=== PATIENT | male | born 1980 | race Caucasian/White ===

== ENCOUNTER 2017-11-05 21:35 | Emergency (ER) | payer BC ==
[2017-11-05] MEDS ORDERED: Sodium Chloride 0.9% 100 ML IV SCH (22:45)
[2017-11-05] MEDS ORDERED: Iopamidol 612 MG/ML 150 ML Bottle IV SCH (22:45)
[2017-11-05] MEDS ORDERED: Lactated Ringers 1,000 ML IV SCH (22:45)
--- NOTE | 2017-11-05 22:46 | EDM.PDOC ---
<Gabby Bass N - Last Filed: 11/05/17 22:52> ED HPI GENERAL MEDICAL PROBLEM - General Chief Complaint: Abdominal Pain Stated Complaint: ABDOMINAL PAIN Time Seen by Provider: 11/05/17 21:44 - History of Present Illness INITIAL COMMENTS - FREE TEXT/NARRATIVE: Lucien is an otherwise healthy 37-year-old male who presents with complaints of epigastric pain. States he had noticeable fatigue yesterday, and experienced abdominal pain in the evening. The pain has persisted through the night, and woke him up at various times due to its intensity. The patient states the pain is spasmodic, and lasts for about 2 minutes at a time, recurring approximately every 15 minutes. He reports that it feels as though someone is "grabbing" him internally, and rates the pain at an 8/10. No known exacerbating or relieving factors. He has tried Tums and Motrin without relief. The patient reports associated fatigue and decreased appetite, but denies diarrhea, fevers, chills, constipation, or nausea. States he had a Hydascan approximately 2-3 months ago with no significant findings. Abdominal Pain Score (Numeric/FACES): 8 - Related Data Allergies Allergy/AdvReac Type Severity Reaction Status Date / Time amoxicillin Allergy Other Verified 11/05/17 22:04 clavulanic acid Allergy Rash Verified 11/05/17 22:04 [From Augmentin] Home Meds: Home Meds Levothyroxine 1 tab PO DAILY 11/05/17 [History] Loratadine/Pseudoephedrine [Claritin-D 24 Hour Tablet] 1 tab PO DAILY 11/05/17 [ History] Past Medical History HEENT History: Reports: Impaired Vision - Infectious Disease History Infectious Disease History: Reports: Chicken Pox - Past Surgical History Endocrine Surgical History: Reports: Thyroidectomy Social & Family History - Tobacco Use Smoking Status *Q: Never Smoker - Caffeine Use Caffeine Use: Reports: Coffee, Soda - Recreational Drug Use Recreational Drug Use: No ED ROS GENERAL - Review of Systems Review Of Systems: See Below Constitutional: Reports: Fatigue, Decreased Appetite. Denies: Fever, Chills, Malaise, Weakness HEENT: Reports: No Symptoms Respiratory: Denies: Shortness of Breath, Pleuritic Chest Pain, Cough Cardiovascular: Denies: Chest Pain, Edema Endocrine: Reports: Fatigue GI/Abdominal: Reports: Abdominal Pain, Decreased Appetite, Flatus. Denies: Bloody Stool, Constipation, Diarrhea, Hematemesis, Hematochezia, Melena, Nausea , Vomiting : Denies: Frequency, Hematuria, Urgency Musculoskeletal: Reports: No Symptoms Skin: Denies: Rash Neurological: Reports: No Symptoms Psychiatric: Reports: No Symptoms Hematologic/Lymphatic: Reports: No Symptoms Immunologic: Reports: No Symptoms ED EXAM, GI/ABD - Physical Exam Exam Limited By: No Limitations General Appearance: Alert, No Apparent Distress Throat/Mouth: Other (Dry mucous membranes) Respiratory/Chest: No Respiratory Distress, Lungs Clear, Normal Breath Sounds, No Accessory Muscle Use Cardiovascular: Regular Rate, Rhythm, No Edema, No Gallop, No Murmur, No Rub GI/Abdominal Exam: Normal Bowel Sounds, Soft, No Mass, Tender (In the epigastric region) Neurological: Alert, Oriented, CN II-XII Intact, Normal Cognition Psychiatric: Normal Affect, Normal Mood Skin Exam: Warm, Dry, Intact, No Rash Course - Vital Signs Last Recorded V/S: Last Vital Signs Temp 97.9 F 11/05/17 22:03 Pulse 70 11/05/17 22:03 Resp 16 11/05/17 22:03 BP 118/85 11/05/17 22:03 Pulse Ox 98 11/05/17 22:03 - Orders/Labs/Meds Orders: Active Orders 24 hr Category Date Time Status Peripheral IV Care [RC] . DIRECTED Care 11/05/17 22:36 Active Abdomen Pelvis w Cont [CT] Urgent Exams 11/05/17 22:35 Taken UA W/MICROSCOPIC [URIN] Urgent Lab 11/05/17 22:35 Ordered Lactated Ringers [Ringers, Lactated] 1,000 ml Med 11/05/17 22:45 Active IV ASDIRECTED Sodium Chloride 0.9% [Normal Saline] 100 ml Med 11/05/17 22:45 Active IV ASDIRECTED Sodium Chloride 0.9% [Saline Flush] Med 11/05/17 22:35 Active 10 ml FLUSH ASDIRECTED PRN Peripheral IV Insertion Adult [OM.PC] Urgent Oth 11/05/17 22:35 Ordered Medication Orders Lactated Ringer's (Ringers, Lactated) 1,000 mls @ 500 mls/hr IV ASDIRECTED [facility] Last Admin: 11/05/17 23:18 Dose: 500 mls/hr Sodium Chloride (Normal Saline) 100 mls @ 3 mls/sec IV ASDIRECTED VICTORIA Last Admin: 11/05/17 23:37 Dose: 3.5 mls/sec Sodium Chloride (Saline Flush) 10 ml FLUSH ASDIRECTED PRN PRN Reason: Keep Vein Open Last Admin: 11/05/17 23:36 Dose: 10 ml Admin: 11/05/17 23:12 Dose: 10 ml Labs: Laboratory Tests 11/05/17 11/05/17 11/05/17 Range/Units 22:35 22:35 22:59 WBC 7.7 (4.5-11.0) K/uL RBC 5.20 (4.30-5.90) M/uL Hgb 15.5 H (12.0-15.0) g/dL Hct 43.3 (40.0-54.0) % MCV 83 (80-98) fL MCH 30 (27-31) pg MCHC 36 (32-36) % Plt Count 189 (150-400) K/uL Neut % (Auto) 62 (36-66) % Lymph % (Auto) 21 L (24-44) % [place] % (Auto) 13 H (2-6) % Eos % (Auto) 4 (2-4) % Baso % (Auto) 0 (0-1) % Sodium 137 L (140-148) mmol/L Potassium 3.5 L (3.6-5.2) mmol/L Chloride 104 (100-108) mmol/L Carbon Dioxide 26 (21-32) mmol/L Anion Gap 10.5 (5.0-14.0) mmol/L BUN 14 (7-18) mg/dL Creatinine 0.9 (0.8-1.3) mg/dL Est Cr Clr Drug Dosing 133.19 mL/min Estimated GFR (MDRD) > 60 (>60) Glucose 99 (74-106) mg/dL Calcium 8.4 L (8.5-10.1) mg/dL Total Bilirubin 0.6 (0.2-1.0) mg/dL AST 13 L (15-37) U/L ALT 25 (12-78) U/L Alkaline Phosphatase 68 (46-116) U/L Troponin I < 0.017 (0.000-0.056) ng/mL Total Protein 6.8 (6.4-8.2) g/dL Albumin 3.5 (3.4-5.0) g/dL Globulin 3.3 (2.3-3.5) g/dL Albumin/Globulin Ratio 1.1 L (1.2-2.2) Lipase 102 (73-393) U/L Urine Color Yellow Urine Appearance Clear Urine pH 7.0 (4.5-8.0) Ur Specific [place] 1.010 (1.008-1.030) Urine Protein Negative (NEGATIVE) mg/dL Urine Glucose (UA) Normal (NEGATIVE) mg/dL Urine Ketones Negative (NEGATIVE) mg/dL Urine Occult Blood Negative (NEGATIVE) Urine Nitrite Negative (NEGAITVE) Urine Bilirubin Negative (NEGATIVE) Urine Urobilinogen Normal (NORMAL) mg/dL Ur Leukocyte Esterase Negative (NEGATIVE) Urine RBC Not seen (0-5) Urine WBC Not seen (0-5) Ur Epithelial Cells Not seen Amorphous Sediment Not seen Urine Bacteria Not seen Urine Mucus Not seen Meds: Medications Generic Name Dose Route Start Last Admin Trade Name Freq PRN Reason Stop Dose Admin Lactated Ringer's 1,000 mls @ 500 mls/hr 11/05/17 22:45 11/05/17 23:18 Ringers, Lactated IV 500 mls/hr ASDIRECTED VICTORIA Administration Sodium Chloride 100 mls @ 3 mls/sec 11/05/17 22:45 11/05/17 23:37 Normal Saline IV 3.5 mls/sec ASDIRECTED VICTORIA Administration Sodium Chloride 10 ml 11/05/17 22:35 11/05/17 23:36 Saline Flush FLUSH 10 ml ASDIRECTED PRN Administration Keep Vein Open Discontinued Medications Generic Name Dose Route Start Last Admin Trade Name Freq PRN Reason Stop Dose Admin Al Hydroxide/Mg Hydroxide 15 0 ml 11/06/17 01:12 11/06/17 01:34 ml/ Lidocaine HCl 15 ml PO 11/06/17 01:13 30 ml ONETIME ONE Administration Iopamidol 150 ml 11/05/17 22:45 11/05/17 23:37 Isovue-300 (61%) IV 150 ml . DIRECTED VICTORIA Administration Departure - Departure Disposition: Home, Self-Care 01 Clinical Impression: GERD (gastroesophageal reflux disease) Qualifiers: Esophagitis presence: esophagitis presence not specified Qualified Code(s): K21.9 - Gastro-esophageal reflux disease without esophagitis - Discharge Information Referrals: PCP,None [Primary Care Provider] - Forms: ED Department Discharge Additional Instructions: Try Zantac at home, Follow-up with your primary care in the next 5-7 days for reevaluation, call return to the emergency department with worsening of symptoms - My Orders Last 24 Hours: My Active Orders 11/05/17 22:35 Abdomen Pelvis w Cont [CT] Urgent UA W/MICROSCOPIC [URIN] Urgent Sodium Chloride 0.9% [Saline Flush] 10 ml FLUSH ASDIRECTED PRN Peripheral IV Insertion Adult [OM.PC] Urgent 11/05/17 22:36 Peripheral IV Care [RC] . DIRECTED 11/05/17 22:45 Lactated Ringers [Ringers, Lactated] 1,000 ml IV ASDIRECTED Sodium Chloride 0.9% [Normal Saline] 100 ml IV ASDIRECTED - Assessment/Plan Last 24 Hours: My Active Orders 11/05/17 22:35 Abdomen Pelvis w Cont [CT] Urgent UA W/MICROSCOPIC [URIN] Urgent Sodium Chloride 0.9% [Saline Flush] 10 ml FLUSH ASDIRECTED PRN Peripheral IV Insertion Adult [OM.PC] Urgent 11/05/17 22:36 Peripheral IV Care [RC] . DIRECTED 11/05/17 22:45 Lactated Ringers [Ringers, Lactated] 1,000 ml IV ASDIRECTED Sodium Chloride 0.9% [Normal Saline] 100 ml IV ASDIRECTED <OfficerNathan - Last Filed: 11/06/17 02:16> ED EXAM, GI/ABD - Physical Exam Exam: See Below Departure - Departure Time of Disposition: 02:13 Condition: Good - Assessment/Plan Plan: Assessment Acuity = acute Site and laterality = epigastric pain Etiology = unclear etiology suspicious for gastroesophageal reflux disease Manifestations = none Location of injury = Home Lab values = CBC, CMP, urinalysis unremarkable CT scan consistent with enteritis Plan He had good relief with GI cocktail he is going to try Zantac at home follow-up with his primary care in 3-5 days for reevaluation History of present illness was developed by the nurse practitioner student I did complete an exam myself assessment and plan was completed by myself This note was dictated using [employer] voice recognition software please call with any questions on syntax or grammar. * Nathan Mullins MD was personally available for consultation in the ED. I have reviewed the chart and agree with the documentation as recorded by the nurse practitioner student, including the assessment, treatment plan and disposition. * Nathan Mlulins MD personally saw and examined the patient. I have reviewed and agree with the student's findings.
[2017-11-05] MEDS: Sodium Chloride 0.9% 10 ML Syringe FLUSH PRN ×2 (23:12→23:36)
[2017-11-06] MEDS ORDERED: Alum Hydrox/Mag Hydrox/Simeth 15 ML, Lidocaine 2% 15 ML PO ONE ×2 (01:12)
== END 2017-11-06 02:27 | disposition home or self-care (01) ==
LOC: JP.ED 21:35
DX: K21.9 Gastro-esophageal reflux disease without esophagitis (principal); Z88.1 Allergy status to other antibiotic agents
CPT/HCPCS: 36415; 74177; 80053; 81001; 83690; 84484; 85025; 96360; 96361; 99284; A9270; J7030; J7050; J7120